=== PATIENT | female | born 1980 | race Caucasian/White ===

== ENCOUNTER 2017-09-27 09:33 | Inpatient (IN) | payer OTHER, MEDICAID, SELFPAY ==
[2017-09-27] VITALS (14 sets, daily range): BP systolic 94–145; BP diastolic 53–98; PULSE 82–114; RESP 14–18; TEMP 36.6–37.2; O2SAT 96–100; BMI 22.5
--- NOTE | 2017-09-27 09:55 | ED.ALCOHOL ---
HPI - Alcohol General Chief Complaint: Toxicology Problem Stated Complaint: 'detoxing' Time Seen by Provider: 09/27/17 09:34 Source: patient Mode of arrival: ambulatory Limitations: no limitations History of Present Illness HPI narrative: 36-year-old female with extensive history of alcohol abuse presents to the emergency department with a chief complaint of withdrawal like symptoms. She drinks upwards of 1/5 of liquor per day and last had a drink sometime last night. She was last in detox a few years ago. She has been working with a counselor out [facility] to help get her placement in to [facility]. She denies use of any other street drugs. She does admit to headache with nausea, resting tremors as well as both auditory and visual hallucinations. She denies any history of seizures but certainly had DTs in the past MD complaint: alcohol withdrawal Chronic alcohol use: Yes Previous visits for alcohol intoxication: Yes Recent trauma: No Associated symptoms: denies other symptoms Treatments prior to arrival: none Related Data Home Medications Medication Instructions Recorded Confirmed tramadol 100 mg PO .ONCE 09/27/17 09/27/17 Allergies Allergy/AdvReac Type Severity Reaction Status Date / Time No Known Allergies Allergy Uncoded 05/24/17 12:42 Review of Systems Review of Systems All systems reviewed & are unremarkable except as noted in HPI and below Constitutional Denies chills, Denies fever(s), Denies lethargy and Denies weakness Eyes Denies change in vision, Denies eye discharge, Denies irritation and Denies loss of vision ENT Ears, Nose, Mouth, and Throat: Denies change in voice, Denies neck pain and Denies sore throat Cardiovascular Denies chest pain, Reports diaphoresis, Denies irregular heart rhythm, Reports lightheadedness, Denies palpitations, Denies dyspnea, Denies dyspnea on exertion and Denies orthopnea Respiratory Denies cough, Denies dyspnea, Denies dyspnea on exertion and Denies wheezing Gastrointestinal Gastrointestinal: Reports abdominal pain, Denies change in bowel habits, Denies diarrhea, Reports nausea and Denies vomiting Genitourinary Denies hematuria, Denies flank pain, Denies urinary incontinence and Denies urinary urgency Musculoskeletal Denies neck pain Comments: significant resting tremors Integumentary/Breasts Denies pruritus, Denies erythema, Denies rash and Denies wounds Comments: diaphoresis Neurologic Reports confusion, Denies loss of vision and Denies weakness Comments: agitation Psychiatric Reports anxiety, Reports confusion, Denies depression, Denies homicidal ideation and Denies suicidal ideation Endocrine Denies palpitations Hematologic/Lymphatic Denies easy bruising Allergic/Immunologic Denies wheezing [facility] Social History Smoking Status: Current every day smoker Exam Narrative Exam Narrative: 36-year-old female in obvious, significant distress. Severe resting tremor and agitation Initial Vital Signs Initial Vital Signs: Vital Signs Temperature 98.2 F 09/27/17 09:49 Pulse Rate 114 H 09/27/17 09:49 Respiratory Rate 18 09/27/17 09:49 Blood Pressure 145/98 H 09/27/17 09:49 Pulse Oximetry 98 09/27/17 09:49 HENMT Head: normal to inspection Ears: hearing grossly normal bilaterally Nose: external nose normal Face and sinus: normal facial exam Mouth: oral mucosae normal Teeth and gingiva: dentition normal Eyes General: appearance normal, both eyes and all related structures Eyelids: eyelids normal Conjunctivae: conjunctivae normal Sclera: sclerae normal Pupils: PERRL EOM: EOM intact bilaterally Neck Neck: normal visual inspection, trachea midline, No lymphadenopathy, No midline deformity and No JVD Lymphatic: No lymphedema Chest Chest: normal inspection of the chest Resp Effort & Inspection: normal respiratory effort, able to speak in complete sentences, no respiratory distress and no use of accessory muscles Auscultation: clear to auscultation bilaterally, no rales, no rhonchi and no wheezes Cardio Rate: tachycardic Rhythm: regular rhythm GI Inspection: normal to inspection Palpation: tender Auscultation: normal bowel sounds Back/Spine/Pelvis Back: normal to inspection Cervical Spine: cervical ROM normal Skin General: warm and other (diaphoresis) Hair: normal Nails: normal Neuro General: alert and awake Cranial Nerves: CN's II-XI intact bilaterally Cognition: normal cognition Motor: tremor Sensory Exam: no sensory deficits noted Coordination: [id number] test normal Extrem General: normal to inspection Right upper extremity: normal to inspection Left upper extremity: normal to inspection Right lower extremity: normal to inspection Left lower extremity: normal to inspection Psych Appearance: disheveled Speech and Movement: agitated and pressured speech Mood: anxious mood Affect: anxious affect Attitude: guarded Thought Process: normal Thought Content: normal Course Orders Ordered: ED Orders 09/27/17 10:15 Complete Blood Count AUTO DIFF Stat Comprehensive Metabolic Panel Stat Ethanol (ETOH) Stat Hepatic (Liver) Panel Stat Lipase Stat Magnesium Stat 09/27/17 11:05 Urine Drug Screen, Rapid Stat Urine Microscopic Stat Ondansetron HCl (Zofran) 4 mg IV Q4HR PRN PRN Reason: Nausea And Vomiting Last Admin: 09/27/17 10:32 Dose: 4 mg Discontinued Medications Thiamine HCl 100 mg/ Dextrose 51 mls @ 204 mls/hr IV NOW ONE Stop: 09/27/17 09:57 Last Infusion: 09/27/17 11:00 Dose: 204 mls/hr Admin: 09/27/17 10:33 Dose: 204 mls/hr Sodium Chloride (Normal Saline 0.9%) 1,000 mls @ 1,000 mls/hr IV BOLUS ONE Stop: 09/27/17 10:55 Last Infusion: 09/27/17 11:31 Dose: 1,000 mls/hr Admin: 09/27/17 10:23 Dose: 1,000 mls/hr Lorazepam (Ativan) 2 mg IV NOW ONE Stop: 09/27/17 09:57 Last Admin: 09/27/17 10:24 Dose: 2 mg Lorazepam (Ativan) 2 mg IV NOW ONE Stop: 09/27/17 12:21 Reevaluation(s) Reevaluation #1: YOBANI-Ashutosh for Alcohol Withdrawal from [facility] on 09/27/2017 All calculations should be rechecked by clinician prior to use RESULT SUMMARY: 35 points Patients with scores ?20 frequently require medication for withdrawal, and may also require admission to the ICU for observation for seizures or development of delirium tremens, and more frequent medication dosing. INPUTS: Nausea/vomiting ?> 4 = Intermittent nausea with dry heaves Tremor ?> 7 = Severe, even with arms not extended Paroxysmal sweats ?> 4 = Beads of sweat obvious on forehead Anxiety ?> 4 = Moderately anxious, or guarded, so anxiety is inferred Agitation ?> 4 = Moderately fidgety and restless Tactile disturbances ?> 3 = Moderate itching, pin and needles, burning, or numbness Auditory disturbances ?> 3 = Moderate harshness or ability or frighten Visual disturbances ?> 3 = Moderate sensitivity Headache/fullness in head ?> 3 = Moderate Orientation/clouding of sensorium ?> 0 = Oriented, can do serial additions Reevaluation #2: CIWA-Ar for Alcohol Withdrawal from [facility] on 09/27/2017 All calculations should be rechecked by clinician prior to use RESULT SUMMARY: 16 points Patients with scores ?9 may require medication for withdrawal. INPUTS: Nausea/vomiting ?> 2 = (More severe symptoms) Tremor ?> 4 = Moderate, with patient's arms extended Paroxysmal sweats ?> 0 = No sweat visible Anxiety ?> 2 = (More severe symptoms) Agitation ?> 1 = Somewhat more activity than normal activty Tactile disturbances ?> 0 = None Auditory disturbances ?> 2 = Mild harshness or ability or frighten Visual disturbances ?> 2 = Mild sensitivity Headache/fullness in head ?> 3 = Moderate Orientation/clouding of sensorium ?> 0 = Oriented, can do serial additions Time: 12:20 Vital Signs - 8 hr 09/27/17 09:49 09/27/17 11:20 Temperature 98.2 F Pulse Rate 114 H 91 H Respiratory Rate 18 17 Blood Pressure 145/98 H Blood Pressure [Right Arm] 122/87 H Pulse Oximetry 98 100 MDM - Alcohol Lab Data Result diagrams: 09/27/17 10:15 09/27/17 10:15 Labs: Lab Results 09/27/17 09/27/17 09/27/17 Range/Units 10:15 10:15 11:05 WBC 10.8 (4.5-11.0) X10^3/uL RBC 4.41 (4.0-5.2) X10^6/uL Hgb 13.6 (12.0-16.0) g/dL Hct 40.5 (36-46) % MCV 91.8 (80-100) fL MCH 30.9 (26-34) PG MCHC 33.7 (30-36) % RDW 14.4 (11.6-14.8) % Plt Count 295 (150-400) X10^3/uL Neut % (Auto) 69.3 (50-75) % Lymph % (Auto) 19.8 L (25-40) % [place] % (Auto) 8.1 (3-14) % Eos % (Auto) 2.3 (2-4) % Baso % (Auto) 0.5 (0-2) % Neut # (Auto) 7500 H (6435-6681) /uL Sodium 140 (137-145) mmol/L Potassium 4.5 (3.4-5.1) mmol/L Chloride 98 (98-107) mmol/L Carbon Dioxide 25 (22-32) mmol/L BUN 12 (7-17) mg/dL Creatinine 0.60 (0.52-1.04) mg/dL Estimated GFR > 60.0 (>60) mL/min BUN/Creatinine Ratio 20.0 (6-22) Glucose 87 (70-100) mg/dL Calcium 10.0 (8.4-10.2) mg/dL Magnesium 1.7 (1.6-2.3) mg/dL Total Bilirubin 0.4 (0.2-1.3) mg/dL Conjugated Bilirubin 0.0 (0.0-0.3) md/dL Unconjugated Bilirubin 0.1 (0.0-1.1) mg/dL AST 36 (14-36) IU/L ALT 36 (9-52) IU/L Alkaline Phosphatase 64 (38-126) U/L Total Protein 8.5 H (6.3-8.2) g/dL Albumin 5.0 (3.5-5.0) g/dL Globulin 3.5 (1.7-4.1) g/dL Albumin/Globulin Ratio 1.4 (1.0-2.8) Lipase 136 (23-300) U/L Urine RBC (0-5/HPF) Urine WBC (0-5/HPF) Ur Squamous Epith Cells Urine Bacteria (None) Ur Culture Indicated? Micro UA Comment Urine Opiates Screen Negative (Negative) Ur Oxycodone Screen Negative (Negative) Urine Methadone Screen Negative (Negative) Ur Barbiturates Screen Negative (Negative) U Tricyclic Antidepress Negative (Negative) Ur Phencyclidine Scrn Negative (Negative) Ur Amphetamines Screen Negative (Negative) U Methamphetamines Scrn Negative (Negative) Ur MDMA Scrn (Ecstasy) Negative (Negative) U Benzodiazepines Scrn Positive H (Negative) Urine Cocaine Screen Negative (Negative) U Marijuana (THC) Screen Negative (Negative) Ethyl Alcohol 32 mg/dL 09/27/18 Range/Units 11:05 WBC (4.5-11.0) X10^3/uL RBC (4.0-5.2) X10^6/uL Hgb (12.0-16.0) g/dL Hct (36-46) % MCV (80-100) fL MCH (26-34) PG MCHC (30-36) % RDW (11.6-14.8) % Plt Count (150-400) X10^3/uL Neut % (Auto) (50-75) % Lymph % (Auto) (25-40) % [place] % (Auto) (3-14) % Eos % (Auto) (2-4) % Baso % (Auto) (0-2) % Neut # (Auto) (7016-4527) /uL Sodium (137-145) mmol/L Potassium (3.4-5.1) mmol/L Chloride (98-107) mmol/L Carbon Dioxide (22-32) mmol/L BUN (7-17) mg/dL Creatinine (0.52-1.04) mg/dL Estimated GFR (>60) mL/min BUN/Creatinine Ratio (6-22) Glucose (70-100) mg/dL Calcium (8.4-10.2) mg/dL Magnesium (1.6-2.3) mg/dL Total Bilirubin (0.2-1.3) mg/dL Conjugated Bilirubin (0.0-0.3) md/dL Unconjugated Bilirubin (0.0-1.1) mg/dL AST (14-36) IU/L ALT (9-52) IU/L Alkaline Phosphatase (38-126) U/L Total Protein (6.3-8.2) g/dL Albumin (3.5-5.0) g/dL Globulin (1.7-4.1) g/dL Albumin/Globulin Ratio (1.0-2.8) Lipase (23-300) U/L Urine RBC None seen (0-5/HPF) Urine WBC 5-10/hpf H (0-5/HPF) Ur Squamous Epith Cells 5-10 /hpf H Urine Bacteria Many (>30) H (None) Ur Culture Indicated? Cult not indicated Micro UA Comment Not Reportable Urine Opiates Screen (Negative) Ur Oxycodone Screen (Negative) Urine Methadone Screen (Negative) Ur Barbiturates Screen (Negative) U Tricyclic Antidepress (Negative) Ur Phencyclidine Scrn (Negative) Ur Amphetamines Screen (Negative) U Methamphetamines Scrn (Negative) Ur MDMA Scrn (Ecstasy) (Negative) U Benzodiazepines Scrn (Negative) Urine Cocaine Screen (Negative) U Marijuana (THC) Screen (Negative) Ethyl Alcohol mg/dL Discharge Plan Departure Patient Disposition: Admitted As Inpatient Clinical Impression: Alcohol withdrawal delirium Admit Date/Time: 09/27/17 12:55 Admit Provider: Tomy Raman
[2017-09-27 10:22] LABS: Add Manual Diff / Slide Review NO; Basophils Percent Auto 0.5 % (0-2); Eosinophils Percent Auto 2.3 % (2-4); Hematocrit 40.5 % (36-46); Hemoglobin 13.6 g/dL (12.0-16.0); Lymphocytes Percent Auto 19.8 % (25-40); Mean Corpuscular HGB Conc 33.7 % (30-36); Mean Corpuscular Hemoglobin 30.9 PG (26-34); Mean Corpuscular Volume 91.8 fL (80-100); Monocytes Percent Auto 8.1 % (3-14); Neutrophils Absolute Auto 7500 /uL (3000-5900); Neutrophils Percent Auto 69.3 % (50-75); Platelet Count 295 X10^3/uL (150-400); Red Blood Cell Count 4.41 X10^6/uL (4.0-5.2); Red Cell Distribution Width 14.4 % (11.6-14.8); White Blood Cell Count 10.8 X10^3/uL (4.5-11.0)
[2017-09-27] MEDS: SODIUM CHLORIDE 0.9% 1,000 ML 1000 ML IV (10:23)
[2017-09-27] MEDS: LORazepam 2 MG/ML SYRINGE IV ×4 (10:24→20:11)
[2017-09-27] MEDS: ONDANSETRON 4 MG/2 ML INJ IV (10:32)
[2017-09-27] MEDS: THIAMINE 100 MG in DEXTROSE 5 % IN WATER 50 ML 204 ML IV (10:33)
[2017-09-27 10:39] LABS: Alanine Aminotransferase 36 IU/L (9-52); Albumin Globulin Ratio 1.4 (1.0-2.8); Alkaline Phosphatase 64 U/L (38-126); Aspartate Aminotransferase 36 IU/L (14-36); Bilirubin Total 0.4 mg/dL (0.2-1.3); Bilirubin Unconjugated 0.1 mg/dL (0.0-1.1); Blood Urea Nitrogen 12 mg/dL (7-17); Carbon Dioxide 25 mmol/L (22-32); Chloride 98 mmol/L (98-107); Estimated Glomerular Filt Rate > 60.0 mL/min (>60); Ethanol (ETOH) 32 mg/dL; Globulin 3.5 g/dL (1.7-4.1); Glucose 87 mg/dL (70-100); HEMOLYSIS < 15 (0-50); Lipase 136 U/L (23-300); Magnesium 1.7 mg/dL (1.6-2.3); Potassium 4.5 mmol/L (3.4-5.1); Sodium 140 mmol/L (137-145); Total Protein 8.5 g/dL (6.3-8.2)
[2017-09-27 11:14] LABS: RBC Urine None Seen (0-5/HPF)
--- NOTE | 2017-09-27 11:22 | PC.NURSE ---
patient got up to use the commode, stood at bedside well, C/O lower abdominal pain. Nurse is aware
[2017-09-27 11:23] LABS: Urine Amphetamines Negative (Negative); Urine Barbiturates Negative (Negative); Urine Benzodiazepines Positive (Negative); Urine Cocaine Negative (Negative); Urine MDMA Negative (Negative); Urine Methadone Negative (Negative); Urine Methamphetamines Negative (Negative); Urine Morphine/Opi cutoff 2000 Negative (Negative); Urine Oxycodone Negative (Negative); Urine Phencyclidine Negative (Negative); Urine Tetrahydrocannabinol Negative (Negative); Urine Tricyclic Antidepressant Negative (Negative)
[2017-09-27 11:25] LABS: Bacteria Urine Many (>30); Culture Indicated Urine Cult Not Indicated; Squamous Epithelial Cell Urine 5-10 /HPF; WBC Urine 5-10/HPF (0-5/HPF)
[2017-09-27 14:01] LABS: Add Manual Diff / Slide Review NO; Basophils Percent Auto 0.6 % (0-2); Eosinophils Percent Auto 2.7 % (2-4); Hematocrit 36.9 % (36-46); Hemoglobin 12.7 g/dL (12.0-16.0); Lymphocytes Percent Auto 18.9 % (25-40); Mean Corpuscular HGB Conc 34.4 % (30-36); Mean Corpuscular Hemoglobin 31.5 PG (26-34); Mean Corpuscular Volume 91.5 fL (80-100); Monocytes Percent Auto 6.8 % (3-14); Neutrophils Absolute Auto 6300 /uL (3000-5900); Platelet Count 229 X10^3/uL (150-400); Red Blood Cell Count 4.03 X10^6/uL (4.0-5.2); Red Cell Distribution Width 14.3 % (11.6-14.8); White Blood Cell Count 8.9 X10^3/uL (4.5-11.0)
[2017-09-27 14:18] LABS: Alanine Aminotransferase 35 IU/L (9-52); Albumin Globulin Ratio 1.4 (1.0-2.8); Alkaline Phosphatase 56 U/L (38-126); Aspartate Aminotransferase 36 IU/L (14-36); Bilirubin Total 0.5 mg/dL (0.2-1.3); Blood Urea Nitrogen 10 mg/dL (7-17); Calcium 8.7 mg/dL (8.4-10.2); Carbon Dioxide 29 mmol/L (22-32); Chloride 101 mmol/L (98-107); Estimated Glomerular Filt Rate > 60.0 mL/min (>60); Ethanol (ETOH) < 10 mg/dL; Globulin 2.9 g/dL (1.7-4.1); Glucose 86 mg/dL (70-100); HEMOLYSIS 26 (0-50); Lipase 113 U/L (23-300); Magnesium 1.6 mg/dL (1.6-2.3); Potassium 3.8 mmol/L (3.4-5.1); Sodium 137 mmol/L (137-145); Total Protein 6.9 g/dL (6.3-8.2)
[2017-09-27] MEDS: DEXTROSE 5%-NS W/KCL 20MEQ 1,000 ML 100 MEQ IV (14:33)
[2017-09-27] MEDS: NICOTINE 14 PATCH 14 MG TOP (14:33)
[2017-09-27] MEDS: ENOXAPARIN 40 MG/0.4 ML SYRINGE SUBCUT (14:34)
[2017-09-27] MEDS: cloNIDine 0.1 MG TABLET PO (14:34)
--- NOTE | 2017-09-27 16:57 | PC.NURSE ---
1630- Patient wakes easily. Patient is tremulous and states she is having bad dreams. Patient disoriented to date and is clammy. Patient also states she is having a headache. Patient medicated per [facility] protocol. Will monitor.
--- NOTE | 2017-09-27 17:10 | P.HP_ITS ---
History of Present Illness Date Patient Seen: 09/27/17 Time Patient Seen: 17:09 Chief complaint: 'detoxing' Narrative: This patient admitted from the ER with that history of alcohol withdrawal on CIWA protocol and the last drink was last night she is known to the ER here she has she has been seen many times the CIWA score was 35 initially otherwise normally she gets treated in the ER and sent home but today she was admitted because she was rather high but came down with treatment in the ER Currently she is in the ICU and lying on her side answering questions and not in any pain not seem in distress Patient History Family & Social History Family History: Reviewed 09/27/17 by Tomy Raman MD Social History: household members family Safety & Behavioral: Feels Safe in Current Yes Environment Suicidal Ideation Description None Suicide Plan Description No Plan Tobacco & Substance use: Tobacco type cigarettes Smoking Status Current every day smoker alcohol intake current alcohol intake frequency 3 or more drinks per day Substance Use Type does not use Meds Home Medications Medication Instructions Recorded Confirmed Type tramadol 100 mg PO .ONCE 09/27/17 09/27/17 History Allergies Allergy/AdvReac Type Severity Reaction Status Date / Time No Known Allergies Allergy Uncoded 05/24/17 12:42 Review of Systems Review of Systems All systems reviewed & are unremarkable except as noted in HPI and below Exam Vital Signs (past 8 hours): - 09/27/17 09:49 09/27/17 11:20 09/27/17 12:00 Temperature 98.2 F Pulse Rate 114 H 91 H 93 H Respiratory Rate 18 17 15 Blood Pressure 145/98 H Blood Pressure [Right Arm] 122/87 H 107/58 L Pulse Oximetry 98 100 98 09/27/17 12:58 09/27/17 13:06 09/27/17 13:55 Temperature 98.9 F 98.4 F Pulse Rate 96 H 95 H 86 Respiratory Rate 16 16 18 Blood Pressure 109/68 Blood Pressure [Right Arm] 107/58 L 116/73 Pulse Oximetry 99 99 09/27/17 14:26 09/27/17 14:34 09/27/17 15:43 Temperature 97.8 F Pulse Rate 89 85 89 Respiratory Rate 15 16 Blood Pressure 109/68 109/68 99/54 L Blood Pressure [Right Arm] Pulse Oximetry 96 Oxygen Delivery Method Room Air Const General: cooperative, healthy appearing and comfortable Orientation: alert, awake and oriented x3 HENWI Head: normal to inspection, normocephalic and atraumatic Ears: hearing grossly normal bilaterally Nose: external nose normal Face and sinus: normal facial exam Eyes General: appearance normal, both eyes and all related structures Eyelids: eyelids normal Sclera: sclerae normal Cornea: corneas normal Pupils: PERRL Neck Neck: normal visual inspection Thyroid: thyroid normal Resp Effort & Inspection: normal respiratory effort and able to speak in complete sentences Auscultation: clear to auscultation bilaterally Cardio Palpation: normal PMI Rate: regular rate Rhythm: regular rhythm Heart Sounds: S1 normal and S2 normal GI Inspection: normal to inspection Palpation: soft Back/Spine/Pelvis Back: normal to inspection and No back tenderness Skin General: no rashes or lesions noted Neuro General: alert, awake and oriented x3 Cranial Nerves: CN's II-XI intact bilaterally Cognition: normal cognition Speech: speech normal Motor: muscle tone normal throughout Sensory Exam: no sensory deficits noted Extrem General: edema (KHADIJAH LE 2-3+) Psych Appearance: grossly normal Mood: congruent mood Affect: normal affect Attitude: cooperative Thought Process: normal Thought Content: normal Judgment: judgment good Objective Labs Result Diagrams: 09/27/17 13:45 09/27/17 13:45 Labs: Laboratory Results - last 24 hr 09/27/17 09/27/17 09/27/17 10:15 10:15 11:05 WBC 10.8 RBC 4.41 Hgb 13.6 Hct 40.5 MCV 91.8 MCH 30.9 MCHC 33.7 RDW 14.4 Plt Count 295 Neut % (Auto) 69.3 Lymph % (Auto) 19.8 L [place] % (Auto) 8.1 Eos % (Auto) 2.3 Baso % (Auto) 0.5 Neut # (Auto) 7500 H Sodium 140 Potassium 4.5 Chloride 98 Carbon Dioxide 25 BUN 12 Creatinine 0.60 Estimated GFR > 60.0 BUN/Creatinine Ratio 20.0 Glucose 87 Calcium 10.0 Magnesium 1.7 Total Bilirubin 0.4 Conjugated Bilirubin 0.0 Unconjugated Bilirubin 0.1 AST 36 ALT 36 Alkaline Phosphatase 64 Total Protein 8.5 H Albumin 5.0 Globulin 3.5 Albumin/Globulin Ratio 1.4 Lipase 136 Urine RBC Urine WBC Ur Squamous Epith Cells Urine Bacteria Ur Culture Indicated? Micro UA Comment Urine Opiates Screen Negative Ur Oxycodone Screen Negative Urine Methadone Screen Negative Ur Barbiturates Screen Negative U Tricyclic Antidepress Negative Ur Phencyclidine Scrn Negative Ur Amphetamines Screen Negative U Methamphetamines Scrn Negative Ur MDMA Scrn (Ecstasy) Negative U Benzodiazepines Scrn Positive H Urine Cocaine Screen Negative U Marijuana (THC) Screen Negative Ethyl Alcohol 32 09/27/17 09/27/17 09/27/17 11:05 13:45 13:45 WBC 8.9 RBC 4.03 Hgb 12.7 Hct 36.9 MCV 91.5 MCH 31.5 MCHC 34.4 RDW 14.3 Plt Count 229 Neut % (Auto) 71.0 Lymph % (Auto) 18.9 L [place] % (Auto) 6.8 Eos % (Auto) 2.7 Baso % (Auto) 0.6 Neut # (Auto) 6300 H Sodium 137 Potassium 3.8 Chloride 101 Carbon Dioxide 29 BUN 10 Creatinine 0.50 L Estimated GFR > 60.0 BUN/Creatinine Ratio 20.0 Glucose 86 Calcium 8.7 Magnesium 1.6 Total Bilirubin 0.5 Conjugated Bilirubin Unconjugated Bilirubin AST 36 ALT 35 Alkaline Phosphatase 56 Total Protein 6.9 Albumin 4.0 Globulin 2.9 Albumin/Globulin Ratio 1.4 Lipase 113 Urine RBC None seen Urine WBC 5-10/hpf H Ur Squamous Epith Cells 5-10 /hpf H Urine Bacteria Many (>30) H Ur Culture Indicated? Cult not indicated Micro UA Comment Not Reportable Urine Opiates Screen Ur Oxycodone Screen Urine Methadone Screen Ur Barbiturates Screen U Tricyclic Antidepress Ur Phencyclidine Scrn Ur Amphetamines Screen U Methamphetamines Scrn Ur MDMA Scrn (Ecstasy) U Benzodiazepines Scrn Urine Cocaine Screen U Marijuana (THC) Screen Ethyl Alcohol < 10 Assessment & Plan Plan: Assessment/Plan Narrative: ALCOHOL WITHDRAWAL IS CONTINUE WITH [facility]WA PROTOCOL AND USE ATIVAN NEEDED CONTINUE IV FLUIDS AND THIAMINE FOLIC ACID AND MULTIVITAMINS Time Spent With Patient Time with patient: 25 - 35 minutes
[2017-09-28] VITALS (15 sets, daily range): BP systolic 96–113; BP diastolic 58–74; PULSE 65–87; RESP 13–19; TEMP 36.4–37.2; O2SAT 97–100; BMI 22.4
[2017-09-28] MEDS: DEXTROSE 5%-NS W/KCL 20MEQ 1,000 ML 100 MEQ IV ×3 (01:24→21:21)
[2017-09-28] MEDS: LORazepam 2 MG/ML SYRINGE IV ×2 (05:28→09:40)
[2017-09-28 05:44] LABS: Add Manual Diff / Slide Review NO; Basophils Percent Auto 0.8 % (0-2); Eosinophils Percent Auto 5.5 % (2-4); Lymphocytes Percent Auto 31.8 % (25-40); Mean Corpuscular HGB Conc 33.2 % (30-36); Mean Corpuscular Hemoglobin 30.8 PG (26-34); Mean Corpuscular Volume 92.7 fL (80-100); Monocytes Percent Auto 9.1 % (3-14); Neutrophils Absolute Auto 3000 /uL (3000-5900); Neutrophils Percent Auto 52.8 % (50-75); Platelet Count 219 X10^3/uL (150-400); Red Blood Cell Count 3.89 X10^6/uL (4.0-5.2); Red Cell Distribution Width 14.6 % (11.6-14.8); White Blood Cell Count 5.7 X10^3/uL (4.5-11.0)
[2017-09-28 05:53] LABS: Alanine Aminotransferase 28 IU/L (9-52); Albumin 3.2 g/dL (3.5-5.0); Albumin Globulin Ratio 1.2 (1.0-2.8); Alkaline Phosphatase 38 U/L (38-126); Aspartate Aminotransferase 25 IU/L (14-36); Bilirubin Total 0.5 mg/dL (0.2-1.3); Bilirubin Unconjugated 0.4 mg/dL (0.0-1.1); Blood Urea Nitrogen 9 mg/dL (7-17); Calcium 8.5 mg/dL (8.4-10.2); Carbon Dioxide 29 mmol/L (22-32); Chloride 105 mmol/L (98-107); Estimated Glomerular Filt Rate > 60.0 mL/min (>60); Globulin 2.6 g/dL (1.7-4.1); Glucose 97 mg/dL (70-100); HEMOLYSIS < 15 (0-50); Sodium 138 mmol/L (137-145); Total Protein 5.8 g/dL (6.3-8.2)
[2017-09-28] MEDS: ENOXAPARIN 40 MG/0.4 ML SYRINGE SUBCUT (09:44)
[2017-09-28] MEDS: THIAMINE 100 MG TABLET PO (09:44)
[2017-09-28] MEDS: MULTIVITAMIN 1 TABLET 1 TAB PO (09:44)
[2017-09-28] MEDS: FOLIC ACID 1 MG TABLET PO (09:44)
[2017-09-28] MEDS: cloNIDine 0.1 MG TABLET PO (10:38)
[2017-09-28] MEDS: LORazepam 1 MG TABLET PO ×3 (12:57→21:21)
--- NOTE | 2017-09-28 13:50 | CM.DANOTE ---
CD Assessment Patient is a 36 year old female who was admitted to ICU on 09/27/17 for Detox/Withdrawal. Pt has [facility] for insurance and her PCP is not listed. EMR was reviewed. Per , pt currently on IV Ativan for withdrawal but likely to switch to oral. SW met bedside with pt and explained role and pt was tremulous but alert and oriented and able to participate in discussion. CD Hx: Patient confirms that she has been drinking since she was 13 years old and denies use of other drugs and states she will drink anything she can get her hands on and does not have a preference for what kind of alcohol. Pt states that she tends to binge drink for a couple months at a time and will drink until she passes out. The longest she has been able to abstain from alcohol is a month and that only happened maybe once. Pt was in the ER in 2017 for binge drinking and seizures from withdrawal. Pt lost her job due to her binge drinking and is currently unemployed and living with her mother in [place]. Tx Hx: Patient states that she enrolled in [facility] in 2017 and went to her intake appointment but did not follow through with any other services and [facility] MIS check confirmed that pt was only active for a month and showed as only attending one appointment before being closed out. Pt denies other outpt CD tx and states that she went to Inpt CD treatment years and years ago and has not participated in further treatment. Pt confirms that she had scheduled a CD assessment with Lizeth, CDPT Counselor from [facility] [phone], and was participating in the assessment when her withdrawal tremors became so challenging that Lizeth recommended she come to the ER for assessment and was then admitted to [facility]. 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 Pt not currently enrolled in MH counseling or treatment. Legal: patient denies Supports: Patient states that she feels her mother is supportive and has allowed her to live with her the past year when she became homeless due to her drinking issues. Pt cannot identify any other supports. Plan: Patient states that her plan prior to being admitted to the hospital was completing her CD assessment with Lizeth from [facility] and then getting into [facility] while waiting for an Inpt CD treatment bed. PACO called [facility] and they were anticipating a female detox bed opening and Anne-Marie faxed clinicals to [facility] to review and PACO supported the pt with completing her phone screening interview with [facility]. PACO called back and [facility] is currently full and requesting staff call back this evening or in the morning to see if any open beds available. PACO called Lizeth with [facility] who confirms pt was there for CD assessment and seeking treatment although pt was too sick to complete CD assessment. PACO updated Lizeth that [facility] is currently still full and she recommended [facility]. Lizeth also stated that once pt is medically stable they can try to assist with CD treatment placement although they cannot complete CD assessment here onsite at the hospital. SW called [facility] to inquire if they have an open female detox bed and they are not contracted with [facility]. She recommended [facility] (which is full) and [facility]. PACO called [facility] and had to leave a message with intake to determine if they have an open female detox bed contracted with [facility]. Plan: SW to follow closely for return call from [facility] to determine if they have an opening and are contracted with [facility]. SW to call [facility] in the morning to see if they have an open female detox bed yet. SW to keep Lizeth with [facility] updated and they may be able to help with Inpt CD placement. GEOFF De La Torre Discharge Planning/Care Management CM Discharge Assessment Start: 09/28/17 13:44 Freq: Status: Active Protocol: Document 09/28/17 13:44 BF (Rec: 09/28/17 13:50 [id number]) Discharge Planning Assessment Assigned [employer] GEOFF Advance Directives? No Advance Directives on File No History Provided By Patient Medical Record Has Patient been admitted in last 30 No days? Prior Living Arrangements House Comment Lives with mother in [place] Household Members family Type of transporation used prior to Relies on Others admit Independent with ADL's Yes Is patient alert and oriented? Yes Caregiver for Another No Comment Pt was scheduled for a CD assessment when she began having withdrawal and was sent to ER Patient/Family Preference Drug/Alcohol Rehab Comment Pt requesting [facility] and then Inpt CD tx Barriers to Discharge Yes Comment [facility] currently full. Discharge Plan Drug Rehabilitation Community Services Social Work Referrals Initiated Other Additional Comment Pt clinicals already faxed to [facility] and pt completed phone screening, waiting for open bed. Possible need for search into In Rehab if [facility] not available. Whiteboard Updated in Patient Room with No name and ext. # of [employer] Technician Review Status In Process Next Review Date 09/29/17 Next Review Type Continued Stay Review
--- NOTE | 2017-09-28 19:00 | PC.NURSE ---
1800- Patient states she is having abdominal pain. She feels it may be her mensus arriving early. Patient given appropriate supplies and a warm blanket for her abdomen. Will monitor.
[2017-09-28] MEDS: ONDANSETRON 4 MG/2 ML INJ IV (19:46)
--- NOTE | 2017-09-28 20:42 | P.PN_ITS ---
Subjective Date Patient Seen: 09/28/17 Time Patient Seen: 15:39 Interval history: Admitted with alcohol withdrawal syndrome is much better today is feeling hungry in eating and conversing normally Exam Vital Signs (past 8 hours): - 09/28/17 15:49 09/28/17 19:48 Temperature 97.8 F 98.9 F Pulse Rate 84 86 Respiratory Rate 18 19 Blood Pressure 96/58 L 113/71 Pulse Oximetry 100 Oxygen Delivery Method Room Air Oxygen Flow Rate 0 Const General: cooperative, healthy appearing and comfortable [facility] Head: normal to inspection Ears: hearing grossly normal bilaterally Nose: external nose normal Face and sinus: normal facial exam Eyes General: appearance normal, both eyes and all related structures Eyelids: eyelids normal Conjunctivae: conjunctivae normal Sclera: sclerae normal Pupils: PERRL EOM: EOM intact bilaterally Neck Neck: normal visual inspection Thyroid: thyroid normal Resp Effort & Inspection: normal respiratory effort Auscultation: clear to auscultation bilaterally Cardio Rate: regular rate Rhythm: regular rhythm Heart Sounds: S1 normal and S2 normal GI Inspection: normal to inspection Palpation: soft Back/Spine/Pelvis Back: normal to inspection and No back tenderness Skin General: no rashes or lesions noted Neuro General: alert, awake and oriented x3 Cranial Nerves: CN's II-XI intact bilaterally Cognition: normal cognition Speech: speech normal Motor: muscle tone normal throughout Extrem General: normal to inspection Psych Appearance: grossly normal Mood: congruent mood Affect: normal affect Attitude: cooperative Thought Process: normal Thought Content: normal Judgment: judgment good Objective Labs Result Diagrams: 09/28/17 05:17 09/28/17 05:17 Labs: Laboratory Results - last 24 hr 09/28/17 09/28/17 05:17 05:17 WBC 5.7 RBC 3.89 L Hgb 12.0 Hct 36.0 MCV 92.7 MCH 30.8 MCHC 33.2 RDW 14.6 Plt Count 219 Neut % (Auto) 52.8 Lymph % (Auto) 31.8 [place] % (Auto) 9.1 Eos % (Auto) 5.5 H Baso % (Auto) 0.8 Neut # (Auto) 3000 Sodium 138 Potassium 4.0 Chloride 105 Carbon Dioxide 29 BUN 9 Creatinine 0.60 Estimated GFR > 60.0 BUN/Creatinine Ratio 15.0 Glucose 97 Calcium 8.5 Total Bilirubin 0.5 Conjugated Bilirubin 0.0 Unconjugated Bilirubin 0.4 AST 25 ALT 28 Alkaline Phosphatase 38 Total Protein 5.8 L Albumin 3.2 L Globulin 2.6 Albumin/Globulin Ratio 1.2 Assessment & Plan Plan: Assessment/Plan Narrative: Alcohol withdrawl CONTINUE CIWA PROTOCOL Time Spent With Patient Time with patient: less than 15 minutes
[2017-09-29] MEDS: LORazepam 2 MG/ML SYRINGE IV (00:07)
[2017-09-29 00:10] VITALS: BP 116/78; PULSE 76; RESP 17; TEMP 37.1; O2SAT 100
--- NOTE | 2017-09-29 00:26 | PC.NURSE ---
Addendum entered by Myla Sexton R.N. 09/29/17 06:42: CIWA score on arrival to room 209 was 7 so medicated with po Ativan. Bed alarm is on. Denies pain. Oriented to room/bed controls. Original Note: Addendum entered by Jyoti Nuenz R.N. 09/29/17 06:22: Report to CHANO Lanza in [facility]. Pt stable and ready for transport. Original Note: Addendum entered by Jyoti Nunez R.N. 09/29/17 04:38: Refusing labs this AM. Original Note: Pt states I'm crawling out of my skin. CIWA 10 - medicated per protocol with IV ativan. Pt states only slight improvement upon reassessment 15 minutes later. Will monitor closely. Up to BR SBA, steady gait. Bed alarm active.
[2017-09-29] MEDS: LORazepam 1 MG TABLET PO ×4 (03:56→17:13)
[2017-09-29 05:27] VITALS: BP 109/75; PULSE 66; RESP 15; TEMP 36.6; O2SAT 99
[2017-09-29] MEDS: DEXTROSE 5%-NS W/KCL 20MEQ 1,000 ML 100 MEQ IV (06:53)
[2017-09-29 07:53] VITALS: BP 103/75; PULSE 65; RESP 16; TEMP 36.8; O2SAT 100
[2017-09-29] MEDS: MULTIVITAMIN 1 TABLET 1 TAB PO (09:25)
[2017-09-29] MEDS: FOLIC ACID 1 MG TABLET PO (09:25)
[2017-09-29] MEDS: ENOXAPARIN 40 MG/0.4 ML SYRINGE SUBCUT (09:25)
[2017-09-29] MEDS: THIAMINE 100 MG TABLET PO (09:25)
[2017-09-29] MEDS: cloNIDine 0.1 MG TABLET PO (09:26)
[2017-09-29 10:48] LABS: Add Manual Diff / Slide Review NO; Basophils Percent Auto 0.6 % (0-2); Eosinophils Percent Auto 5.6 % (2-4); Hematocrit 39.5 % (36-46); Hemoglobin 13.1 g/dL (12.0-16.0); Lymphocytes Percent Auto 24.6 % (25-40); Mean Corpuscular HGB Conc 33.2 % (30-36); Mean Corpuscular Hemoglobin 31.5 PG (26-34); Mean Corpuscular Volume 94.9 fL (80-100); Monocytes Percent Auto 11.2 % (3-14); Neutrophils Absolute Auto 3700 /uL (3000-5900); Red Blood Cell Count 4.17 X10^6/uL (4.0-5.2); Red Cell Distribution Width 14.5 % (11.6-14.8); White Blood Cell Count 6.4 X10^3/uL (4.5-11.0)
[2017-09-29 11:02] LABS: Alanine Aminotransferase 22 IU/L (9-52); Albumin 3.6 g/dL (3.5-5.0); Albumin Globulin Ratio 1.2 (1.0-2.8); Alkaline Phosphatase 45 U/L (38-126); Aspartate Aminotransferase 26 IU/L (14-36); BUN Creatinine Ratio 11.7 (6-22); Bilirubin Direct 0.3 mg/dL (0.0-0.4); Bilirubin Total 0.4 mg/dL (0.2-1.3); Blood Urea Nitrogen 7 mg/dL (7-17); Calcium 9.2 mg/dL (8.4-10.2); Carbon Dioxide 26 mmol/L (22-32); Chloride 105 mmol/L (98-107); Estimated Glomerular Filt Rate > 60.0 mL/min (>60); Globulin 2.9 g/dL (1.7-4.1); Glucose 81 mg/dL (70-100); HEMOLYSIS 32 (0-50); Potassium 4.9 mmol/L (3.4-5.1); Sodium 137 mmol/L (137-145); Total Protein 6.5 g/dL (6.3-8.2)
--- NOTE | 2017-09-29 11:42 | PC.NURSE ---
Pt requesting ativan to help with withdrawals but CIWA is 3. Discussed with and will call her phy to determine what dose of ativan she normally received each day. Pt has been receiving ativan overnight.
[2017-09-29 12:00] VITALS: BP 119/73; PULSE 75; RESP 17; TEMP 36.4; O2SAT 100
--- NOTE | 2017-09-29 12:49 | PM.DS.1 ---
History of Present Illness Date Patient Seen: 09/29/17 Time Patient Seen: 10:45 Chief complaint: Anxiety and tremulousness Narrative: This is a 36-year-old homeless alcoholic female presenting with complaints of anxiety and tremulousness due to evolving acute alcohol withdrawal. She had last drink 2 days and presented to the ER was high CIWA score requiring hospital admission. Discharge Providers Date of admission: 09/27/17 12:55 Consults: 09/27/17 13:16 Consult to Dietitian, Adult Routine Comment: Reason For Exam: malno 09/27/17 14:26 Consult to Dietitian, Adult Routine Comment: Reason For Exam: alcoholism Consult to Corporate Learning Consultant Routine Comment: Discharge provider: Rashaad Patel MD Summary Discharge Diagnosis: Alcoholism with acute alcohol withdrawal symptoms. Hospital Course: This is a 66-year-old homeless alcoholic female who was admitted with acute alcohol withdrawal manifesting as anxiety and tremulousness. There were multiple similar admissions in the past. Patient was treated by [facility] a protocol with good clinical response. She is getting transferred to detox unit at [facility] in stable condition and with clinical improvement. Status at Discharge Cognitive/behavioral status at discharge: At the time of discharge appears to be at the baseline of mentation/behavior Functional status at discharge: independent ambulation Overall status at discharge: patient is back to baseline Time Spent with Patient Less than 30 minutes Time spent discussing smoking cessation with patient: 3 to 10 minutes Exam Vital Signs (past 8 hours): - 09/29/17 05:27 09/29/17 07:53 09/29/17 12:00 Temperature 97.8 F 98.3 F 97.6 F Pulse Rate 66 65 75 Respiratory Rate 15 16 17 Blood Pressure 109/75 103/75 119/73 Pulse Oximetry 99 100 100 Oxygen Delivery Method Room Air Oxygen Flow Rate 0 Narrative Exam Narrative: Constitutional: Well-nourished well-developed female in mild distress she is alert oriented x3 HEENT: Unremarkable exam Eyes: PERRLA, EOMI Neck: Supple Pulmonary: Clear to auscultation bilaterally Cardiovascular: Regular rhythm rate ,with no murmurs Gastrointestinal: Note this summer organomegaly bowel sounds present Skin: No lesions, no rashes Neurological: No focal symptoms at that Extremities: Warm to touch, no edema Objective Labs Result Diagrams: 09/29/17 10:20 09/29/17 10:20 Labs: Laboratory Results - last 24 hr 09/29/17 09/29/17 10:20 10:20 WBC 6.4 RBC 4.17 Hgb 13.1 Hct 39.5 MCV 94.9 MCH 31.5 MCHC 33.2 RDW 14.5 Plt Count TNP Neut % (Auto) 58.0 Lymph % (Auto) 24.6 L [place] % (Auto) 11.2 Eos % (Auto) 5.6 H Baso % (Auto) 0.6 Neut # (Auto) 3700 Sodium 137 Potassium 4.9 Chloride 105 Carbon Dioxide 26 BUN 7 Creatinine 0.60 Estimated GFR > 60.0 BUN/Creatinine Ratio 11.7 Glucose 81 Calcium 9.2 Total Bilirubin 0.4 Direct Bilirubin 0.3 AST 26 ALT 22 Alkaline Phosphatase 45 Total Protein 6.5 Albumin 3.6 Globulin 2.9 Albumin/Globulin Ratio 1.2 Discharge Plan Discharge Plan Patient Disposition: Home Other facility: Alcohol detox/rehab unit at [facility] Provider Discharge Instructions Diet: Regular Activity: As tolerated Discharge Data Attending Provider: Tomy Raman Admit Date/Time: 09/27/17 12:55
--- NOTE | 2017-09-29 15:48 | PC.NURSE ---
Pt is going to Crisis center at 6:15 pm as arranged by GEOFF Meade. Ativan prescription called in. Pt is calm and cooperative with CIWA of 3.
--- NOTE | 2017-09-29 15:49 | CM.DPC ---
Addendum entered by GEOFF Arcos 09/30/17 09:00: Updated Lizeth Robb at [facility] via today, P# [phone]. Original Note: DC Note: DC to [facility] today, intake available at 1900. Pt remains agreeable to plan and coordinated this. 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 Spoke w/CHANO Dennis at [place] [id number] today. CHANO Mejia called Rx for Ativan into [facility] per Jeannie's request. GEOFF Arcos
[2017-09-29 15:50] VITALS: BP 119/79; PULSE 63; RESP 16; TEMP 36.4; O2SAT 100
== END 2017-09-29 18:12 | disposition other institution (70) | DRG 775 ==
LOC: ED 12:23 → ICU 09-28 07:04 → AC 09-29 06:04
PROVIDERS: Admitting Provider Internal Medicine; Emergency Provider Emergency Medicine; Visit Provider Internal Medicine
DX: F10.231 Alcohol dependence with withdrawal delirium (principal); Y90.1 Blood alcohol level of 20-39 mg/100 ml; F17.200 Nicotine dependence, unspecified, uncomplicated; Z59.0 Homelessness
CPT/HCPCS: 36415; 36591; 80053; 80076; 80305; 80320; 81003; 81015; 81025; 82248; 82962; 83690; 83735; 85025; 87797; 96361; 96374; 96376; 99284; 99285; J1650; J2060; J2405